=== PATIENT | male | born 1960 | race Caucasian/White ===

== ENCOUNTER 2022-08-01 10:15 | Outpatient (CLI) | payer BC, SELFPAY ==
--- NOTE | ~2022-08-01 | XR_ITS ---
XR abdomen/kub 1V 08/01/2022 10:31 Indication: Renal stone Procedure: KUB Comparison: No prior studies for comparison. Findings: Bowel gas pattern is nonobstructive. Moderate colonic fecal loading. No acute osseous abnor mality. There is osteoarthritis of the hips. Impression: 1: No acute abdominal abnormality. Reviewed, dictated and finalized at location B. LOPMENTAL SPECIALIST Impression: 1: No acute abdominal abnormality.
[2022-08-01 18:49] LABS: Basophils Absolute Auto 0.1 K/mm3 (0.0-0.1); Eosinophils Absolute Auto 0.2 K/mm3 (0-0.3); Eosinophils Percent Auto 3.4 % (0-4.4); Hematocrit 49.3 % (42.0-52.0); Hemoglobin 15.7 g/dL (14.0-18.0); Immature Granulocyte Absolute 0.01 K/mm3 (0.00-0.031); Immature Granulocyte Percent A 0.2 % (0-0.5); Lymphocytes Absolute Auto 1.83 K/mm3 (0.9-3.2); Lymphocytes Percent Auto 29.6 % (18.3-44.2); Mean Corpuscular HGB Conc 31.8 g/dl (32-36); Mean Corpuscular Volume 94.3 fl (80-100); Mean Platelet Volume 11.2 fl (7.4-10.4); Monocytes Absolute Auto 0.5 K/mm3 (0.1-0.6); Monocytes Percent Auto 8.1 % (2.6-8.5); Neutrophils Absolute Auto 3.6 K/mm3 (1.3-6.7); Neutrophils Percent Auto 57.7 % (45.5-73.1); Platelet Count Result 277 k/mm3 (150-375); Red Blood Count 5.23 M/mm3 (4.6-6.20); Red Cell Distribution Width 12.9 % (11.5-14.5); White Blood Count 6.2 K/mm3 (4.5-10.0)
[2022-08-01 18:54] LABS: Alanine Aminotransferase 88 U/L (6-50); Albumin Level 4.8 g/dL (3.5-5.1); Alkaline Phosphatase 84 U/L (38-126); Anion Gap 11 mmol/L (8-16); Aspartate Amino Transferase 77 U/L (17-59); Bilirubin,Total 0.7 mg/dL (0.2-1.3); Blood Urea Nitrogen 21 mg/dL (9-20); Carbon Dioxide 25 mmol/L (22-30); Chloride 103 mmol/L (98-107); Cholesterol 210 mg/dL (0-200); Estimated Glomerular Filt Rate > 60; Glucose 75 mg/dL (65-110); HDL Direct 41 mg/dL; Potassium 4.2 mmol/L (3.4-5.0); Sodium 139 mmol/L (137-145); Triglycerides 77 mg/dL (<150)
[2022-08-01 19:05] LABS: LDL Cholesterol Direct 132 mg/dL
[2022-08-01 19:26] LABS: Prostate Specific Antigen 1.1 ng/mL (< OR = 4.0)
== END 2022-08-01 10:16 | disposition home or self-care (01) ==
LOC: ANHBWCLAB 10:16
PROVIDERS: PCP Family Medicine; Visit Provider Family Medicine
DX: Z00.00 Encounter for general adult medical examination without abnormal findings (principal); N20.0 Calculus of kidney
CPT/HCPCS: 36415; 74018; 80053; 80061; 84153; 85025; G0103

== ENCOUNTER 2022-08-24 08:03 | Outpatient (CLI) | payer BC, SELFPAY ==
--- NOTE | ~2022-08-24 | CT_ITS ---
Non-contrast CT scan of the Abdomen and Pelvis Clinical indication: Nephrolithiasis Technique: 5 mm axial scans were obtained through the abdomen and pelvis without intravenous or oral contrast. Dose reduction technique was used on this scan by utilizing automated exposure control and iterative reconstruction technique. The dose-length product (DLP) was 222.80 mGy-cm. Findings: Images through the lung bases reveal calcified left basilar granulomas. Small bilateral nonobstructing renal stones are present, with largest stone measuring 3 mm in diamete r. No ureteral stone or hydronephrosis on either side. The liver, spleen, pancreas, gallbladder, and adrenals appear normal. There is no aortic aneurysm. There is no evidence of bowel obstruction. Normal appendix. Images through the pelvis were performed. There is no evidence of ascites or lymphadenopathy. Urinary bladder unremarkable. No pelvic mass seen. Impression: Small bilateral nonobstructing renal stones, as detailed above. Reviewed, dictated and finalized at location [] SLATIVE AIDE Impression: Small bilateral nonobstructing renal stones, as detailed above.
== END 2022-08-24 08:04 | disposition home or self-care (01) ==
LOC: ANHIMG 08:06
PROVIDERS: PCP Family Medicine; Visit Provider Nurse Practitioner
DX: N20.0 Calculus of kidney (principal)
CPT/HCPCS: 74176

== ENCOUNTER 2022-08-31 01:23 | Day surgery (SDC) | payer BC, SELFPAY ==
[2022-08-22 13:34] VITALS: BMI 24.7
[2022-08-31 11:32] VITALS: BP 113/73; PULSE 65; RESP 18; TEMP 35.9; O2SAT 99
[2022-08-31] MEDS: LACTATED RINGERS 1,000 ML 150 ML IV CONT (11:35)
--- NOTE | 2022-08-31 12:00 | WPDANESEPPF ---
Anes - Initial Pre Proc Eval Procedure: Operation Date: 08/31/22 13:00 Proposed Procedures p Screening Colonoscopy - Odin Moore MD Date/Time: 08/31/22 12:00 Surgeon: Odin Moore MD Pre Op Diagnosis: neoplasm screening Patient Data Age: 62 Gender: M Height: 1.85 m Weight: 85 kg Last Vital Signs Temp 35.9 C L 08/31/22 11:32 Pulse 65 08/31/22 11:32 Resp 18 08/31/22 11:32 BP 113/73 08/31/22 11:32 Pulse Ox 99 08/31/22 11:32 O2 Del Method Room Air 08/31/22 11:32 Allergies Allergy/AdvReac Type Severity Reaction Status Date / Time No Known Allergies Allergy Verified 08/31/22 11:31 Home Medications Medication Instructions Recorded Confirmed Type tamsulosin 0.4 mg capsule 0.4 mg PO DAILY PRN Kidney Stones 08/22/22 08/31/22 History Patient hx anesthesia problems: none Family hx anesthesia problems: none Results Review: All pre-operative results and documents have been reviewed as part of the pre-operative evaluation. [facility] Past Medical History Medical History GANESH (obstructive sleep apnea) Family History Family History Father History of ETOH abuse Hypertension Depression COPD (chronic obstructive pulmonary disease) Mother Hypertension Heart disease Sibling Depression Social History Social History Smoking status: Never smoker Smokeless tobacco user: chewing tobacco Alcohol intake: never Substance use: never Substance use type: does not use Lack of Transportation: No Lack of Food: Never True Current Housing: I Have Housing Concerned About Future Housing: No Difficulty Paying Gas/Electric Bills: No Difficulty Paying for Meds: No Currently Unemployed: No Education: High School Diploma/GED Difficulty w/ Childcare or Family Care: No Living arrangements: with family 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[employer] Gender identity (if verbalized by the patient): Male Spiritual care concerns: No Agree to blood products: Yes Anes - Eval Final PreProcedure Day of Procedure 08/31/22 12:00 Patient weight: normal Heart: regular rate and rhythm Lungs: clear to auscultation Airway: Mallampati scale class II Neurological: alert and oriented Last oral intake: >/= 8 hours ASA classification: II Emergent: no Anesthetic plan: proceed Anesthesia type and monitoring: general GIVS and standard monitoring Results Review: All pre-operative results and documents have been reviewed as part of the pre-operative evaluation. Informed Consent: The patient's anesthetic plan and its attendant risks and benefits were discussed with the patient/family/POA. Questions were solicited and answers provided to the satisfaction of the patient/family/POA.
--- NOTE | 2022-08-31 12:27 | PM.HPGS ---
History of Present Illness History of Present Illness Consent: Risks, benefits, and alternatives have been discussed and questions answered. Patient agrees to proceed with procedure. Chief complaint: neoplasm screening Narrative: Kenan Magana is a 62 year old male here for first screening colonoscopy Review of Systems Constitutional: Constitutional: Denies headache(s) and Denies weakness Eyes: Eyes: Denies blurry vision ENT: Reports Normal hearing present, Denies headache(s) and Denies neck pain Cardiovascular: Cardiovascular: Denies chest pain and Denies dyspnea Respiratory: Respiratory: Denies dyspnea Gastrointestinal: Gastrointestinal: Reports no additional gastrointestinal complaints Genitourinary: Genitourinary: Denies dysuria Musculoskeletal: Musculoskeletal: Denies neck pain Integumentary/Breasts: Skin/Breast: Denies dry skin Neurologic: Reports Normal hearing present, Denies headache(s) and Denies weakness Psychiatric: Psychiatric: Denies anxiety Endocrine: Endocrine: Denies change in body appearance Hematologic/Lymphatic: Hematologic/Lymphatic: Denies easy bleeding Allergic/Immunologic: Allergic/Immunologic: Denies urticaria PMFSH Past Medical History Medical History GANESH (obstructive sleep apnea) Family History Family History Father History of ETOH abuse Hypertension Depression COPD (chronic obstructive pulmonary disease) Mother Hypertension Heart disease Sibling Depression Social History Social History Smoking status: Never smoker Smokeless tobacco user: chewing tobacco Alcohol intake: never Substance use: never Substance use type: does not use Lack of Transportation: No Lack of Food: Never True Current Housing: I Have Housing Concerned About Future Housing: No Difficulty Paying Gas/Electric Bills: No Difficulty Paying for Meds: No Currently Unemployed: No Education: High School Diploma/GED Difficulty w/ Childcare or Family Care: No Living arrangements: with family 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 Gender identity (if verbalized by the patient): Male Spiritual care concerns: No Agree to blood products: Yes Meds Home Medications and Allergies Home Medications Medication Instructions Recorded Confirmed Type tamsulosin 0.4 mg capsule 0.4 mg PO DAILY PRN Kidney Stones 08/22/22 08/31/22 History Allergies Allergy/AdvReac Type Severity Reaction Status Date / Time No Known Allergies Allergy Verified 08/31/22 11:31 Vital Signs Vital Signs - 24 hr 08/31/22 11:32 Temperature 96.7 F L Pulse Rate 65 Respiratory Rate 18 Blood Pressure 113/73 Pulse Oximetry 99 Oxygen Delivery Room Air Exam Const: General: comfortable and no acute distress HENMT: Face/Nose/Sinus: Normal nares present Eyes: General: appearance normal, both eyes and all related structures Neck: Neck: no JVD Resp: Auscultation: clear to auscultation bilaterally Cardio: Rate: regular rate Rhythm: regular rhythm GI: Inspection: non-distended GI Palp: Yes Soft to palpation Skin: General skin exam: normal color Neuro: General: gait normal Speech: normal speech Extrem: General: normal to inspection Psych: Mental Status: mental status grossly normal Assessment and Plan Assessment and plan (1) Colon cancer screening: Code(s): Z12.11 - Encounter for screening for malignant neoplasm of colon Status: Acute Assessment and Plan: colonoscopy
[2022-08-31 12:48] VITALS: BP 89/56; PULSE 64; RESP 22; O2SAT 99
[2022-08-31 12:58] VITALS: BP 115/79; PULSE 68; RESP 20; O2SAT 97
[2022-08-31 13:08] VITALS: BP 112/75; PULSE 58; RESP 19; O2SAT 98
== END 2022-08-31 13:16 | disposition home or self-care (01) ==
PROVIDERS: PCP Family Medicine; Visit Provider Internal Medicine Gastroenterology
PROC: 0DJD8ZZ Inspection of Lower Intestinal Tract, Via Natural or Artificial Opening Endoscopic (ICD-10-PCS; CPT 45378; principal; 2022-08-31 13:00)
DX: Z12.11 Encounter for screening for malignant neoplasm of colon (principal); D12.0 Benign neoplasm of cecum; D12.5 Benign neoplasm of sigmoid colon; K64.8 Other hemorrhoids; G47.33 Obstructive sleep apnea (adult) (pediatric)
CPT/HCPCS: 45385; 88305; J2704; J7120

== ENCOUNTER 2022-09-23 10:52 | Outpatient (CLI) | payer BC, SELFPAY ==
[2022-09-23 17:38] LABS: Alanine Aminotransferase 72 U/L (6-50); Albumin Level 4.5 g/dL (3.5-5.1); Alkaline Phosphatase 83 U/L (38-126); Aspartate Amino Transferase 55 U/L (17-59); Bilirubin,Total 0.8 mg/dL (0.2-1.3)
[2022-09-23 18:17] LABS: Hepatitis B Surface Antigen Negative (Negative)
[2022-09-23 18:23] LABS: HAV RESULT Negative (Negative); Hepatitis B Core IgM Result Negative (Negative)
[2022-09-23 18:35] LABS: Hepatitis C Virus Antibody Negative (Negative)
== END 2022-09-23 10:53 | disposition home or self-care (01) ==
PROVIDERS: PCP Family Medicine; Visit Provider Family Medicine
DX: R74.8 Abnormal levels of other serum enzymes (principal)
CPT/HCPCS: 36415; 80074; 80076

== ENCOUNTER 2022-11-08 14:45 | Outpatient (CLI) | payer BC, SELFPAY ==
[2022-11-08 19:01] LABS: Anion Gap 8 mmol/L (8-16); Blood Urea Nitrogen 20 mg/dL (9-20); Calcium 9.9 mg/dL (8.4-10.2); Carbon Dioxide 27 mmol/L (22-30); Chloride 99 mmol/L (98-107); Estimated Glomerular Filt Rate > 60; Glucose 97 mg/dL (65-110); Potassium 4.2 mmol/L (3.4-5.0); Sodium 134 mmol/L (137-145)
== END 2022-11-08 14:46 | disposition home or self-care (01) ==
PROVIDERS: PCP Family Medicine; Visit Provider Nurse Practitioner
DX: Z87.442 Personal history of urinary calculi (principal)
CPT/HCPCS: 36415; 80048

== ENCOUNTER 2023-08-02 08:57 | Outpatient (CLI) | payer BC, SELFPAY ==
[2023-08-02 19:21] LABS: Alanine Aminotransferase 38 U/L (6-50); Albumin Level 4.4 g/dL (3.5-5.1); Alkaline Phosphatase 68 U/L (38-126); Anion Gap 11 mmol/L (8-16); Aspartate Amino Transferase 56 U/L (17-59); Bilirubin,Total 0.8 mg/dL (0.2-1.3); Blood Urea Nitrogen 14 mg/dL (9-20); Calcium 9.9 mg/dL (8.4-10.2); Carbon Dioxide 25 mmol/L (22-30); Chloride 104 mmol/L (98-107); Cholesterol 177 mg/dL (0-200); Estimated Glomerular Filt Rate 56; Glucose 93 mg/dL (65-110); HDL Direct 38 mg/dL; Potassium 4.2 mmol/L (3.4-5.0); Sodium 140 mmol/L (137-145); Triglycerides 156 mg/dL (<150)
[2023-08-02 19:33] LABS: Hematocrit 46.1 % (42.0-52.0); Hemoglobin 14.5 g/dL (14.0-18.0); Mean Corpuscular HGB Conc 31.5 g/dl (32-36); Mean Corpuscular Hemoglobin 29.5 pg (26-34); Mean Corpuscular Volume 93.9 fl (80-100); Mean Platelet Volume 11.3 fl (7.4-10.4); Platelet Count Result 250 k/mm3 (150-375); Red Blood Count 4.91 M/mm3 (4.6-6.20); Red Cell Distribution Width 13.4 % (11.5-14.5); White Blood Count 5.2 K/mm3 (4.5-10.0)
[2023-08-02 19:36] LABS: LDL Cholesterol Direct 104 mg/dL
[2023-08-02 19:52] LABS: Prostate Specific Antigen 1.2 ng/mL (< OR = 4.0)
== END 2023-08-02 08:58 | disposition home or self-care (01) ==
PROVIDERS: PCP Family Medicine; Visit Provider Nurse Practitioner Adult Health
DX: Z13.9 Encounter for screening, unspecified (principal); Z12.5 Encounter for screening for malignant neoplasm of prostate
CPT/HCPCS: 36415; 80053; 80061; 84153; 85027; G0103

== ENCOUNTER 2023-10-25 14:06 | Emergency (ER) | payer BC, SELFPAY ==
--- NOTE | ~2023-10-25 | XR_ITS ---
EXAMINATION: XR chest 1V portable DATE: 10/25/2023 18:28 INDICATION: Palpitations TECHNIQUE: frontal view of the chest was obtained. COMPARISON: None FINDINGS: There are couple small calcified pulmonary nodules in the left lower lung along with calcified left h ilar lymph nodes consistent with old granulomatous disease. There is a small more dense opacity which appears subpleural at the left apex, unclear whether calcified or potentially a metallic foreign bod y. No other airspace opacities, pulmonary edema, pleural effusion or pneumothorax. The cardiomediasti nal silhouette is normal. IMPRESSION: 1. No acute cardiopulmonary disease. Reviewed, dictated and finalized at location A. ETER
--- NOTE | 2023-10-25 14:13 | ECG_ITS ---
Measurements Intervals [employer] Rate: 82 P: 42 ID: 187 QRS: -19 QRSD: 86 T: 60 QT: 379 QTc: 443 Interpretive Statements SINUS RHYTHM POSSIBLE RIGHT VENTRICULAR CONDUCTION DELAY [RSR (QR) IN V1/V2] NO PREVIOUS ECG AVAILABLE FOR COMPARISON Electronically Signed On 10-25-2023 14:41:42 GREASE REFINING SUPERVISOR by eBrto Rivas M.D.
[2023-10-25 14:35] VITALS: BP 126/80; PULSE 81; RESP 14; TEMP 36.6; O2SAT 100
[2023-10-25 17:30] VITALS: BP 136/92; PULSE 69; RESP 16; TEMP 36.3; O2SAT 99
--- NOTE | 2023-10-25 17:48 | ED.ARRPALP ---
HPI - Arrhythmia/Palpitations General Chief Complaint: Arrhythmia/Palpitations Stated Complaint: palpatations Time Seen by Provider: 10/25/23 17:33 History of Present Illness HPI narrative: Patient is a 9-year-old male who presents emergency department this afternoon complaining of palpitations for the past 3 weeks. Patient admits that these palpitations have been happening multiple times a day. This prompted the patient to decrease his caffeine intake as he thought it could be contributing to his. Despite lack of caffeine, patient still has these palpitations. Patient finally decided to come to the emergency department for further evaluation. He drinks 1 cup of coffee a day, denies any tobacco use or alcohol abuse or illicit drug use. He is currently denying any chest pain at this time. Patient denies any significant past medical history and states that he is not currently taking any medications. The remainder the history of present illness and review of systems negative unless stated otherwise in the HPI. Related Data Allergies Allergy/AdvReac Type Severity Reaction Status Date / Time No Known Allergies Allergy Verified 08/02/23 08:31 Review of Systems Review of Systems: All systems are reviewed and are negative unless stated otherwise in the HPI. [facility] Past Medical History Medical History GANESH (obstructive sleep apnea) Family History Family History Father History of ETOH abuse Hypertension Depression COPD (chronic obstructive pulmonary disease) Mother Hypertension Heart disease Sibling Depression Social History Social History Smoking status: Never smoker Smokeless tobacco user: chewing tobacco Alcohol intake: never Substance use: never Substance use type: does not use Lack of Transportation: No Lack of Food: Never True Current Housing: I Have Housing Concerned About Future Housing: No Difficulty Paying Gas/Electric Bills: No Difficulty Paying for Meds: No Currently Unemployed: No Education: High School Diploma/GED Difficulty w/ Childcare or Family Care: No Living arrangements: with family Occupation/Education: occupation 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 HEENT: PERRL, no rhinorrhea, no post nasal drip, oropharynx clear. Neck: Trachea midline, no JVD, no lymphadenopathy. Cardiovascular: Regular rate and rhythm, no murmurs, rubs or gallops, no peripheral edema. Respiratory: Clear to auscultation bilaterally, no tachypnea, no wheezing, no rhonchi, no rubs, no respiratory distress. Abdomen: Soft, nontender, nondistended, no rebound, no guarding, no peritoneal signs. Musculoskeletal: No joint swelling or deformity, normal muscle tone. Skin: No rashes or petechia, no signs of infection. Psychiatric: Alert and oriented, normal behavior and judgment for situation. Neurological: Alert and oriented to person, place, and time. Follows all commands. No focal deficits, speech is clear and fluent. Course Vital Signs Vital signs: Vital Signs Temperature 98 F 10/25/23 14:35 Pulse Rate 81 10/25/23 14:35 Respiratory Rate 14 10/25/23 14:35 Blood Pressure 126/80 10/25/23 14:35 Pulse Oximetry 100 10/25/23 14:35 Temperature 98 F 10/25/23 14:35 Pulse Rate 81 10/25/23 14:35 Respiratory Rate 14 10/25/23 14:35 Blood Pressure 126/80 10/25/23 14:35 Pulse Oximetry 100 10/25/23 14:35 MDM - Arrhythmia/Palpitations MDM Narrative Medical decision making narrative: The patient was evaluated by myself in the emergency department. History is obtained from
[2023-10-25 18:16] LABS: Basophils Absolute Auto 0.1 K/mm3 (0.0-0.1); Basophils Percent Auto 0.8 % (0.2-1.2); Eosinophils Absolute Auto 0.1 K/mm3 (0-0.3); Eosinophils Percent Auto 1.8 % (0-4.4); Hematocrit 47.1 % (42.0-52.0); Hemoglobin 15.8 g/dL (14.0-18.0); Immature Granulocyte Absolute 0.03 K/mm3 (0.00-0.031); Immature Granulocyte Percent A 0.5 % (0-0.5); Lymphocytes Absolute Auto 1.62 K/mm3 (0.9-3.2); Lymphocytes Percent Auto 24.4 % (18.3-44.2); Mean Corpuscular HGB Conc 33.5 g/dl (32-36); Mean Corpuscular Hemoglobin 29.5 pg (26-34); Mean Platelet Volume 10.1 fl (7.4-10.4); Monocytes Absolute Auto 0.5 K/mm3 (0.1-0.6); Monocytes Percent Auto 7.8 % (2.6-8.5); Neutrophils Absolute Auto 4.3 K/mm3 (1.3-6.7); Neutrophils Percent Auto 64.7 % (45.5-73.1); Platelet Count Result 260 k/mm3 (150-375); Red Blood Count 5.35 M/mm3 (4.6-6.20); Red Cell Distribution Width 13.1 % (11.5-14.5); White Blood Count 6.6 K/mm3 (4.5-10.0)
[2023-10-25 18:27] LABS: Alanine Aminotransferase 49 U/L (6-50); Albumin Level 4.4 g/dL (3.5-5.1); Alkaline Phosphatase 81 U/L (38-126); Anion Gap 7 mmol/L (8-16); Aspartate Amino Transferase 37 U/L (17-59); Bilirubin,Total 0.8 mg/dL (0.2-1.3); Blood Urea Nitrogen 14 mg/dL (9-20); Carbon Dioxide 26 mmol/L (22-30); Chloride 103 mmol/L (98-107); Estimated CRCL calculation 95 ml/min; Estimated Glomerular Filt Rate > 60; Glucose 96 mg/dL (65-110); Magnesium 2.3 mg/dL (1.6-2.3); Sodium 136 mmol/L (137-145)
[2023-10-25 18:45] LABS: Troponin I < 0.012 ng/mL (0.000-0.034)
[2023-10-25 19:47] VITALS: BP 127/86; PULSE 72; RESP 16; TEMP 36.7; O2SAT 96
== END 2023-10-25 19:49 | disposition home or self-care (01) ==
PROVIDERS: Emergency Provider Emergency Medicine; PCP Family Medicine
DX: R00.2 Palpitations (principal); G47.33 Obstructive sleep apnea (adult) (pediatric); F17.220 Nicotine dependence, chewing tobacco, uncomplicated; R94.31 Abnormal electrocardiogram [ECG] [EKG]
CPT/HCPCS: 36415; 71045; 80053; 83735; 84484; 85025; 93005; 99284

== ENCOUNTER 2023-10-28 00:50 | Emergency (ER) | payer BC, SELFPAY ==
[2023-10-28] VITALS (12 sets, daily range): BP systolic 104–126; BP diastolic 69–87; PULSE 53–77; RESP 11–29; TEMP 36.6; O2SAT 95–99
--- NOTE | ~2023-10-28 | XR_ITS ---
EXAMINATION: XR chest 2V DATE: 10/28/2023 01:14 INDICATION: Mid to left-sided chest pain TECHNIQUE: PA and lateral views of the chest were obtained. COMPARISON: Chest radiograph dated 10/25/23 FINDINGS: Small calcified nodules at the left lower lung zone and calcified left hilar lymph nodes consistent w ith old granulomatous disease. No other airspace opacities, pulmonary edema, pleural effusion or pneu mothorax. Unchanged small radiopaque foreign body in the soft tissues at the base of the left neck. T he cardiomediastinal silhouette is normal. Mild thoracic spondylosis. IMPRESSION: 1. No acute cardiopulmonary disease. Reviewed, dictated and finalized at location A. CONSULTANT
--- NOTE | 2023-10-28 00:51 | ECG_ITS ---
Measurements Intervals [employer] Rate: 61 P: 10 IL: 181 QRS: 14 QRSD: 86 T: 46 QT: 420 QTc: 426 Interpretive Statements SINUS RHYTHM NORMAL ELECTROCARDIOGRAM COMPARED TO ECG 10/25/2023 14:19:06 NO SIGNIFICANT CHANGES Electronically Signed On 10-28-2023 8:31:22 MESH CUTTER by Kenan Vasquez M.D.
[2023-10-28 01:13] LABS: Basophils Absolute Auto 0.1 K/mm3 (0.0-0.1); Basophils Percent Auto 0.8 % (0.2-1.2); Eosinophils Absolute Auto 0.2 K/mm3 (0-0.3); Eosinophils Percent Auto 2.6 % (0-4.4); Hematocrit 47.8 % (42.0-52.0); Hemoglobin 15.4 g/dL (14.0-18.0); Immature Granulocyte Absolute 0.03 K/mm3 (0.00-0.031); Immature Granulocyte Percent A 0.5 % (0-0.5); Lymphocytes Absolute Auto 2.07 K/mm3 (0.9-3.2); Lymphocytes Percent Auto 31.9 % (18.3-44.2); Mean Corpuscular HGB Conc 32.2 g/dl (32-36); Mean Corpuscular Hemoglobin 29.2 pg (26-34); Mean Corpuscular Volume 90.5 fl (80-100); Mean Platelet Volume 10.4 fl (7.4-10.4); Monocytes Absolute Auto 0.5 K/mm3 (0.1-0.6); Monocytes Percent Auto 7.7 % (2.6-8.5); Neutrophils Absolute Auto 3.7 K/mm3 (1.3-6.7); Neutrophils Percent Auto 56.5 % (45.5-73.1); Platelet Count Result 255 k/mm3 (150-375); Red Blood Count 5.28 M/mm3 (4.6-6.20); White Blood Count 6.5 K/mm3 (4.5-10.0)
[2023-10-28 01:23] LABS: Alanine Aminotransferase 45 U/L (6-50); Albumin Level 4.3 g/dL (3.5-5.1); Alkaline Phosphatase 78 U/L (38-126); Anion Gap 8 mmol/L (8-16); Aspartate Amino Transferase 28 U/L (17-59); Bilirubin,Total 0.6 mg/dL (0.2-1.3); Blood Urea Nitrogen 16 mg/dL (9-20); Calcium 9.7 mg/dL (8.4-10.2); Carbon Dioxide 23 mmol/L (22-30); Chloride 108 mmol/L (98-107); Estimated CRCL calculation 85 ml/min; Estimated Glomerular Filt Rate > 60; Glucose 103 mg/dL (65-110); Lipase 115 U/L (23-300); Potassium 4.2 mmol/L (3.4-5.0); Prothrombin Time 13.6 Seconds (11.1-14.7); Sodium 139 mmol/L (137-145)
[2023-10-28 01:35] LABS: Troponin I < 0.012 ng/mL (0.000-0.034)
[2023-10-28] MEDS: ASPIRIN 81 MG CHEWABLE TABLET 324 MG PO (03:40)
--- NOTE | 2023-10-28 04:00 | ECG_ITS ---
Measurements Intervals [place] Rate: 73 P: 44 IA: 187 QRS: 16 QRSD: 94 T: 65 QT: 395 QTc: 436 Interpretive Statements SINUS RHYTHM INDETERMINATE AXIS MINOR RV CONDUCTION ABNORMALITY OTHERWISE UNREMARKABLE ECG COMPARED TO ECG 10/25/2023 14:19:06 NO DIFFERENCE Electronically Signed On 10-28-2023 19:10:11 PRODUCT DEVELOPMENT MANAGER by Kenan Vasquez M.D.
[2023-10-28 04:52] LABS: Troponin I < 0.012 ng/mL (0.000-0.034)
--- NOTE | 2023-10-28 05:55 | ED.GENADULT ---
HPI - General Adult General Chief complaint: Chest Pain Stated complaint: Chest pain Time Seen by Provider: 10/28/23 03:41 History of Present Illness HPI narrative: This is a 63-year-old male presenting ED with chief complaint of chest pain. Patient states he was sleeping when he was woken with a sharp pain in the center of his chest that then became a pressure. It is nonradiating 6 out 10 intensity and lasted 30 seconds to 1 minute at a time. It happened 10-20 times in a row. Never had this happen before. Improved with lying down. No exacerbating factors. Was so CO2 episodes of nausea vomiting. No fever chills diaphoresis shortness of breath or exertional component. Patient has had palpitations recently and was seen early early this week and emergency department. Related Data Allergies Allergy/AdvReac Type Severity Reaction Status Date / Time No Known Allergies Allergy Verified 08/02/23 08:31 [facility] Past Medical History Medical History GANESH (obstructive sleep apnea) Family History Family History Father History of ETOH abuse Hypertension Depression COPD (chronic obstructive pulmonary disease) Mother Hypertension Heart disease Sibling Depression Social History Social History Smoking status: Never smoker Smokeless tobacco user: chewing tobacco Alcohol intake: never Substance use: never Substance use type: does not use Lack of Transportation: No Lack of Food: Never True Current Housing: I Have Housing Concerned About Future Housing: No Difficulty Paying Gas/Electric Bills: No Difficulty Paying for Meds: No Currently Unemployed: No Education: High School Diploma/GED Difficulty w/ Childcare or Family Care: No Living arrangements: with family Occupation/Education: occupation 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 Head: atraumatic. EYES: EOMI, NOSE: Atraumatic NECK: Trachea midline RESPIRATORY: No increased rate of breathing , clear to auscultation CARDIOVASCULAR: RRR, no peripheral edema ABDOMINAL: Non-distended soft nontender no guarding rebound MUSCULOSKELETAl: No obvious deformities NEURO: Alert. Moving 4/4 extremities SKIN:: Warm, dry. Normal color PSYCHIATRIC: Normal affect Course Vital Signs Vital signs: Vital Signs Temperature 97.8 F 10/28/23 01:07 Pulse Rate 77 10/28/23 01:07 Respiratory Rate 16 10/28/23 01:07 Blood Pressure 118/70 10/28/23 01:07 Pulse Oximetry 98 10/28/23 01:07 Oxygen Delivery Room Air 10/28/23 01:07 Temperature 97.8 F 10/28/23 01:07 Pulse Rate 56 L 10/28/23 04:32 Respiratory Rate 19 10/28/23 04:32 Blood Pressure 111/76 10/28/23 04:32 Pulse Oximetry 96 10/28/23 04:32 Oxygen Delivery Room Air 10/28/23 03:38 Medical Decision Making MDM Narrative Medical decision making narrative: -Course: 63-year-old male presenting with an episode of chest pain with nausea and vomiting. laboratory studies, EKG chest x-ray and troponins all negative. Patient asymptomatic the entire length of his ED stay. Pain is likely due to his vomiting as opposed to cardiac reasons. Patient be discharged follow-up with primary care physician. 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
== END 2023-10-28 06:14 | disposition home or self-care (01) ==
PROVIDERS: Emergency Provider Emergency Medicine; PCP Family Medicine
DX: R07.89 Other chest pain (principal); G47.33 Obstructive sleep apnea (adult) (pediatric); F17.220 Nicotine dependence, chewing tobacco, uncomplicated; R94.31 Abnormal electrocardiogram [ECG] [EKG]
CPT/HCPCS: 36415; 71046; 80053; 83690; 84484; 85025; 85610; 85730; 93005; 99284; A9270

== ENCOUNTER 2024-01-23 08:56 | Outpatient (CLI) | payer BC, SELFPAY ==
[2024-01-23 21:06] LABS: Cholesterol 194 mg/dL (0-200); HDL Direct 45 mg/dL; Triglycerides 102 mg/dL (<150)
[2024-01-23 21:16] LABS: LDL Cholesterol Direct 127 mg/dL
== END 2024-01-23 08:57 | disposition home or self-care (01) ==
PROVIDERS: PCP Family Medicine; Visit Provider Internal Medicine Cardiovascular Disease
DX: R53.83 Other fatigue (principal); R07.89 Other chest pain; G47.33 Obstructive sleep apnea (adult) (pediatric)
CPT/HCPCS: 36415; 80061

== ENCOUNTER 2024-08-05 07:45 | Outpatient (CLI) | payer BC, SELFPAY ==
--- NOTE | ~2024-08-05 | XR_ITS ---
EXAMINATION: XR_CERV2-3V_CR DATE: 08/05/2024 08:08 INDICATION: Neck pain. TECHNIQUE: 3 views of cervical spine were obtained. COMPARISON: None. FINDINGS: There is 5 degrees levocurvature of cervical spine. Vertebral body heights and intervertebr al disc heights are normal. There is multilevel mild uncovertebral joint osteoarthritis. There is mul tilevel severe facet joint osteoarthritis. No central canal stenosis or prevertebral soft tissue swel ling. IMPRESSION: 1. Mild cervical spondylosis. Reviewed, dictated and finalized at location A. SECRETARY
[2024-08-05 18:56] LABS: Hematocrit 47.7 % (42.0-52.0); Hemoglobin 15.2 g/dL (14.0-18.0); Mean Corpuscular HGB Conc 31.9 g/dl (32-36); Mean Corpuscular Hemoglobin 29.5 pg (26-34); Mean Corpuscular Volume 92.4 fl (80-100); Mean Platelet Volume 10.7 fl (7.4-10.4); Platelet Count Result 245 k/mm3 (150-375); Red Blood Count 5.16 M/mm3 (4.6-6.20); Red Cell Distribution Width 13.2 % (11.5-14.5); White Blood Count 6.5 K/mm3 (4.5-10.0)
[2024-08-05 18:59] LABS: Alanine Aminotransferase 40 U/L (6-50); Albumin Level 4.3 g/dL (3.5-5.1); Alkaline Phosphatase 71 U/L (38-126); Anion Gap 7 mmol/L (4-12); Aspartate Amino Transferase 60 U/L (17-59); Bilirubin,Total 0.7 mg/dL (0.2-1.3); Blood Urea Nitrogen 14 mg/dL (9-20); Calcium 9.9 mg/dL (8.4-10.2); Carbon Dioxide 24 mmol/L (22-30); Chloride 107 mmol/L (98-107); Cholesterol 135 mg/dL (0-200); Estimated Glomerular Filt Rate > 60; Glucose 84 mg/dL (65-110); HDL Direct 46 mg/dL; Potassium 4.6 mmol/L (3.4-5.0); Sodium 138 mmol/L (137-145); Triglycerides 128 mg/dL (<150)
[2024-08-05 19:11] LABS: LDL Cholesterol Direct 57 mg/dL
== END 2024-08-05 07:46 | disposition home or self-care (01) ==
LOC: ANHBWCLAB 07:46
PROVIDERS: PCP Nurse Practitioner Adult Health; Visit Provider Nurse Practitioner Adult Health
DX: M43.02 Spondylolysis, cervical region (principal); Z13.9 Encounter for screening, unspecified; Z12.5 Encounter for screening for malignant neoplasm of prostate
CPT/HCPCS: 36415; 72040; 80053; 80061; 84153; 85027; G0103

== ENCOUNTER 2025-07-07 12:29 | Emergency (ER) | payer OTHER, SELFPAY ==
--- NOTE | ~2025-07-07 | CT_ITS ---
CT HEAD NON-CONTRAST Clinical History: Trauma Comparison: None Technique: Unenhanced axial images skull base to vertex Coronal, sagittal reformats CT images acquired with automatic exposure control for dose reduction DLP: 681 mGy-cm Findings: Sulci, ventricles: Unremarkable. No intracerebral hemorrhage. No evidence acute territorial infarct. No mass effect, midline shift. Bony calvarium intact. Visualized paranasal sinuses: Clear. Mastoid air cells: Clear. IMPRESSION: 1. No acute intracranial findings. Reviewed, dictated and finalized at location R.
--- NOTE | ~2025-07-07 | XR_ITS ---
EXAMINATION: XR ribs RT 2V w CXR 2V, 07/07/2025 13:50 CDT HISTORY: trauma, FELL, PAIN POST/LAT, BRUISING COMPARISON: No comparisons available. Findings: No acute fracture or malalignment. No significant degenerative changes. Soft tissues unremarkable. Impression: No acute fracture or malalignment. Reviewed, dictated and finalized at location P. Impression: No acute fracture or malalignment.
[2025-07-07 12:46] VITALS: BP 137/77; PULSE 60; RESP 16; TEMP 36.3; O2SAT 99
--- NOTE | 2025-07-07 13:43 | ED.GENADULT ---
HPI - General Adult General Chief complaint: Back Pain/Injury Stated complaint: fell yesterday. R sided back pain. Nausea today. Time Seen by Provider: 07/07/25 12:57 History of Present Illness HPI narrative: Patient is a 65-year-old male who presents ER after having a fall yesterday. She was in his camper when he fell down the stairs landing on his right side low back. He had sudden onset pain in the area. It took him a little bit to get back up. He is unsure if he hit his head. Today while driving he became foggy and lightheaded and has been persistent. It is coupled with some mild nausea. This is not related to waves of pain in his back. He has no lower extremity numbness or tingling. He is not on any blood thinning medications. He does have history kidney stones but he has no urinary frequency or urgency. Related Data Home Medications ?Medication ?Instructions ?Recorded ?Confirmed ?Last Taken ?Type metoprolol succinate 25 mg 25 mg PO DAILY 08/06/24 05/27/25 Unknown History tablet,extended release 24 hr rosuvastatin 10 mg tablet 10 mg PO DAILY 08/06/24 05/27/25 Unknown History Allergies Allergy/AdvReac Type Severity Reaction Status Date / Time No Known Allergies Allergy Verified 07/07/25 12:31 Review of Systems Review of Systems: All systems reviewed & are unremarkable except as noted in HPI and below Constitutional: Constitutional: Reports no additional constitutional complaints ENT: Reports system reviewed and no additional complaints, except as documented Cardiovascular: Cardiovascular: Reports no additional cardiovascular complaints Respiratory: Respiratory: Reports no additional respiratory complaints Genitourinary: Genitourinary: Reports no additional male genitourinary complaints Musculoskeletal: Musculoskeletal: Reports no additional musculoskeletal complaints Neurologic: Reports system reviewed and no additional complaints, except as documented [facility] Past Medical History Medical History (Updated 07/07/25 @ 15:07 by Aftab Frye MD) Nephrolithiasis GANESH (obstructive sleep apnea) Surgical History Surgical History (Updated 07/07/25 @ 13:46 by Aftab Frye MD) No pertinent past surgical history Family History Family History Father History of ETOH abuse Hypertension Depression COPD (chronic obstructive pulmonary disease) Mother Hypertension Heart disease Sibling Depression Social History Social History Smoking status: Never smoker Smokeless tobacco user: chewing tobacco Alcohol intake: never Substance use: never Substance use type: does not use Lack of Transportation: No Lack of Food: Never True Current Housing: I Have Housing Concerned About Future Housing: No Difficulty Paying Gas/Electric Bills: No Difficulty Paying for Meds: No Currently Unemployed: No Education: High School Diploma/GED Difficulty w/ Childcare or Family Care: No Living arrangements: with family Occupation/Education: occupation 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 HEAD: Normocephalic, atraumatic. ENT: Mucous membranes moist. CHEST: Clear to auscultation. No respiratory distress. Tender palpation over the right posterior ribs laterally posterior to the midaxillary line HEART: Regular rate and rhythm. Normal peripheral pulses. ABDOMEN: Soft, nontender, nondistended. BACK: No midline tenderness or paraspinal tenderness of the T/L spine. Lateral tenderness on the right near the latisimus dorsi and external oblique. EXTREMITIES: Normal range of motion. No edema. SKIN: Warm, dry, no rash. NEURO: Alert and oriented x3. PSYCH: Normal mood and affect. Course Vital Signs Vital signs: Vital Signs Temperature 97.4 F L 07/07/25 12:46 Pulse Rate 60 07/07/25 12:46 Respiratory Rate 16 07/07/25 12:46 Blood Pressure 137/77 07/07/25 12:46 Pulse Oximetry 99 07/07/25 12:46 Oxygen Delivery Room Air 07/07/25 12:46 Temperature 97.4 F L 07/07/25 12:46 Pulse Rate 60 07/07/25 12:46 Respiratory Rate 16 07/07/25 12:46 Blood Pressure 137/77 07/07/25 12:46 Pulse Oximetry 99 07/07/25 12:46 Oxygen Delivery Room Air 07/07/25 12:46 Medical Decision Making Differential Diagnosis Differential Diagnosis: Vertebral fracture, muscle strain/contusion, closed head injury, intracerebral hemorrhage, kidney stone, rib fracture Vital Signs Vital Signs: Vital Signs Temperature 97.4 F L 07/07/25 12:46 Pulse Rate 60 07/07/25 12:46 Respiratory Rate 16 07/07/25 12:46 Blood Pressure 137/77 07/07/25 12:46 Pulse Oximetry 99 07/07/25 12:46 Oxygen Delivery Room Air 07/07/25 12:46 Temperature 97.4 F L 07/07/25 12:46 Pulse Rate 60 07/07/25 12:46 Respiratory Rate 16 07/07/25 12:46 Blood Pressure 137/77 07/07/25 12:46 Pulse Oximetry 99 07/07/25 12:46 Oxygen Delivery Room Air 07/07/25 12:46 Lab Data Lab results reviewed: Yes I reviewed the patient's lab results. Labs: Lab Results 07/07/25 Range/Units 14:00 Urine Color Yellow (Yellow) Urine Appearance Clear (Clear) Urine pH 5.5 (5.0-9.0) Ur Specific [place] 1.019 (1.001-1.035) Urine Protein Negative (Negative) mg/dL Urine Glucose (UA) Negative (Negative) mg/dL Urine Ketones Negative (Negative) mg/dL Ur Blood (Man) Negative (Negative) Urine Nitrate Negative (Negative) Urine Bilirubin Negative (Negative) Urine Urobilinogen 1.0 (<2.0) mg/dL Leukocyte Esterase Rfl Negative (Negative) YADI/UL Imaging Data Radiologist's impression: ITS Impressions Head CT 07/07/25 14:00 IMPRESSION: 1. No acute intracranial findings. Ribs w/Chest X-Ray 07/07/25 14:03 Impression: No acute fracture or malalignment. Discharge Plan Discharge Clinical Impression: Back contusion, Back strain Patient Disposition: Home Condition: Stable Instructions: Acute Low Back Pain (ED) Additional Instructions: Please return to the emergency department if you develop severe pain that is not controlled by pain medications or if you are unable to walk because of pain or weakness. Return to the emergency department immediately if you develop fevers, loss of bowel or bladder control (dribbling of urine or having accidents you wouldn't normally have), inability to urinate, numbness of your genital or anal area, or weakness/numbness of your legs or arms as these could all be signs of a serious medical emergency. Patient Language: Faroese Prescriptions: New naproxen 375 mg tablet 375 mg PO BID Qty: 14 0RF tizanidine 2 mg capsule 2 mg PO Q8H PRN (Reason: muscle spasticity) Qty: 14 0RF No Action rosuvastatin 10 mg tablet 10 mg PO DAILY metoprolol succinate 25 mg tablet extended release 24 hr 25 mg PO DAILY trazodone 100 mg tablet See Rx Instructions .ROUTE .COMPLEX Qty: 90 3RF Dose Instruction: 100 MG ORALLY EVERY DAY AT BEDTIME NEEDED FOR SLEEP Rx Instructions: 100 MG ORALLY EVERY DAY AT BEDTIME NEEDED FOR SLEEP Follow-up/Referrals: Marilu Vasquez APRN [Primary Care Provider, Family Practice] - 1 Week
--- OUTSIDE RECORDS SUMMARY | 2025-07-07 13:49 | XMS_ITS | Clinical Summary ---
Author Organization [facility] [address] Address [address] [place] [address] Care Team Providers Care Collections Director Name Role Phone Isiah Weber MD Primary Care Provider [phone] Allergies No known active allergies Medications traZODone (DESYREL) 100 mg tablet 100 MG ORALLY EVERY DAY AT BEDTIME NEEDED FOR SLEEP 10/30/2023 Active rosuvastatin (CRESTOR) 10 mg tablet TAKE 1 TABLET BY MOUTH EVERY DAY 30 tablet 11 01/20/2025 Active metoprolol XL (TOPROL-XL) 25 mg extended release tablet Take 1 tablet (25 mg total) by mouth daily 90 tablet 3 04/14/2025 Active Active Problems Problem Noted Date Diagnosed Date Chronic insomnia 04/09/2018 GANESH (obstructive sleep apnea) 04/09/2018 Resolved Problems Problem Noted Date Diagnosed Date Resolved Date Snoring 04/09/2018 07/02/2018 Family History Medical History Relation Name Comments No Known Problems Father Heart attack Maternal Grandmother Heart attack Mother Hypertension Mother Heart disease Paternal Grandfather Relation Name Status Comments Father Maternal Grandmother Mother Paternal Grandfather Social History Tobacco Use Types Packs/Day Years Used Date Smoking Tobacco: Never Passive Smoke Exposure: Past Smokeless Tobacco: Current Chew Tobacco Cessation:Ready to Q uit: Not Asked; Counseling Given: Not Answered Alcohol Use Standard Drinks/Week Comments No 0 (1 standard drink = 0.6 oz pur e alcohol) Sex and Gender Information Value Date Recorded Sex Assigned at Not on file Legal 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 Gender Identity Male 01/12/2024 8:36 AM CDT Sexual Orientation Not on file 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 Not on file Not on file Obstetrics History Last Filed Vital Signs Vital Sign Reading Time Taken Comments Blood Pressure 131/78 11/06/2024 4:06 PM SCRUBBER MACHINE TENDER Pulse 63 11/06/2024 4:06 PM SCRUBBER MACHINE TENDER Temperature 36.7 C (98.1 F) 01/01/2024 10:16 AM CDT Respiratory Rate 16 04/09/2018 11:08 AM CDT Oxygen Saturation 98% 11/06/2024 4:06 PM SCRUBBER MACHINE TENDER Inhaled Oxygen Concentration - - Weight 92.7 kg (204 lb 6.4 oz) 11/06/2024 4:06 P M SCRUBBER MACHINE TENDER Height 185.4 cm (6' 1) 11/06/2024 4:06 PM SCRUBBER MACHINE TENDER Body Mass Index 26.97 11/06/2024 4:06 PM SCRUBBER MACHINE TENDER Plan of Treatment Health Maintenance Due Date Last Done Comments Colon Cancer Screening-Colonoscopy 1960 Depression Screening 1962 Hepatitis C Screening 1962 Prostate Cancer Screening-PSA 1962 Hepatitis B Screening 01/08/1980 Regular Well Visit/Exam 18-64 01/08/1980 Zoster Vaccine (1 of 2) 01/08/2012 Influenza Vaccine (#1) 2025 2, 07/04/2020 DTaP/Tdap/Td Vaccine (2 - Td or Tdap) 08/01/2032 08/01/2022 Pneumococcal vaccine <65 Aged Out No longer eligible based on patient's age to complete this topic Insurance Hol[employer]a OOS Holaira OOS Care Teams Collections Director Relationship Specialty Start Date End Date Isiah Weber MD PCP - General Family Practice 01/01/24
--- OUTSIDE RECORDS SUMMARY | 2025-07-07 13:49 | XMS_ITS | Encounter Summary ---
Author Organization [facility] Address [address] [place] [address] Phone Care Team Providers Care Medical Device Assembler Name Role Phone Richard Ely MD Primary Care Provider [phone] Isiah Weber MD Primary Care Provider [phone] Encounter Details Date Type Department Care Team (Latest Contact Info) Description 10/28/2023 Orders Only [facility] Scanning, Provider Social History Tobacco Use Types Packs/Day Years Used Date Smoking Tobacco: Never Smokeless Tobacco: Current Chew Alcohol Use Standard Drinks/Week Comments No 0 (1 standard drink = 0.6 oz pur e alcohol) Sex and Gender Information Value Date Recorded Sex Assigned at Not on file Legal Sex Male 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 documented in this encounter Plan of Treatment Not on file documented as of this encounter Procedures Procedure Name Priority Date/Time Associated Diagnosis Comments SCAN - LABS 10/28/2023 documented in this encounter Results * SCAN - LABS (10/28/2023) us Provider Scanning Final Result documented in this encounter Visit Diagnoses Not on filedocumented in this encounter Care Teams Medical Device Assembler Relationship Specialty Start Date End Date Richard Ely MD [address] [place] [address] PCP - General Family Medicine 03/27/18 12/31/23 Isiah Weber MD [address] [place] [address] PCP - General Family Practice 01/01/24 documented as of this encounter
[2025-07-07 14:16] LABS: Add Urine Microscopic? NO; Appearance Urine Clear (Clear); Glucose Urine UA Negative (Negative); Leukocyte Esterase Ur Negative LEU/UL (Negative); Nitrate Urine Negative (Negative); Specific Grav Ur 1.019 (1.001-1.035)
--- OUTSIDE RECORDS SUMMARY | 2025-07-07 14:42 | XMS_ITS | Clinical Summary ---
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 on file Not on file Obstetrics History Last Filed Vital Signs Vital Sign Reading Time Taken Comments Blood Pressure 131/78 11/06/2024 4:06 PM PIPELINE DISPATCH OPERATOR Pulse 63 11/06/2024 4:06 PM PIPELINE DISPATCH OPERATOR Temperature 36.7 C (98.1 F) 01/01/2024 10:16 AM CDT Respiratory Rate 16 04/09/2018 11:08 AM CDT Oxygen Saturation 98% 11/06/2024 4:06 PM PIPELINE DISPATCH OPERATOR Inhaled Oxygen Concentration - - Weight 92.7 kg (204 lb 6.4 oz) 11/06/2024 4:06 P M PIPELINE DISPATCH OPERATOR Height 185.4 cm (6' 1) 11/06/2024 4:06 PM PIPELINE DISPATCH OPERATOR Body Mass Index 26.97 11/06/2024 4:06 PM PIPELINE DISPATCH OPERATOR Plan of Treatment Health Maintenance Due Date [...] patient's age to complete this topic Insurance [employer] OOS [employer] OOS Care Teams Featheredge Machine Operator Relationship Specialty Start Date End Date Isiah Weber MD PCP - General Family Practice 01/01/24
--- OUTSIDE RECORDS SUMMARY | 2025-07-07 14:42 | XMS_ITS | Encounter Summary ---
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
[2025-07-07 15:13] VITALS: BP 110/78; PULSE 68; RESP 16; O2SAT 100
== END 2025-07-07 15:14 | disposition home or self-care (01) ==
PROVIDERS: Emergency Provider Emergency Medicine; PCP Nurse Practitioner Adult Health
DX: S39.012A Strain of muscle, fascia and tendon of lower back, initial encounter (principal); S30.0XXA Contusion of lower back and pelvis, initial encounter; G47.33 Obstructive sleep apnea (adult) (pediatric); F17.220 Nicotine dependence, chewing tobacco, uncomplicated; Z87.442 Personal history of urinary calculi; W10.8XXA Fall (on) (from) other stairs and steps, initial encounter
CPT/HCPCS: 70450; 71046; 71100; 81003; 99284

== ENCOUNTER 2025-08-19 08:05 | Outpatient (CLI) | payer OTHER, SELFPAY ==
[2025-08-19 19:18] LABS: Alanine Aminotransferase 47 U/L (6-50); Albumin Level 4.7 g/dL (3.5-5.1); Alkaline Phosphatase 74 U/L (38-126); Anion Gap 6 mmol/L (4-12); Aspartate Amino Transferase 69 U/L (17-59); Bilirubin,Total 0.9 mg/dL (0.2-1.3); Blood Urea Nitrogen 21 mg/dL (9-20); Calcium 10.3 mg/dL (8.4-10.2); Carbon Dioxide 27 mmol/L (22-30); Chloride 104 mmol/L (98-107); Cholesterol 154 mg/dL (0-200); Estimated Glomerular Filt Rate > 60; Glucose 84 mg/dL (65-110); HDL Direct 52 mg/dL; Potassium 4.8 mmol/L (3.4-5.0); Sodium 137 mmol/L (137-145); Total Protein 7.7 g/dL (6.3-8.2); Triglycerides 104 mg/dL (<150)
[2025-08-19 19:29] LABS: Hematocrit 48.3 % (42.0-52.0); Hemoglobin 15.9 g/dL (14.0-18.0); Immature Granulocyte Percent A 0.3 % (0-0.5); Lymphocytes Absolute Auto 1.63 K/mm3 (0.9-3.2); Mean Corpuscular HGB Conc 32.9 g/dl (32-36); Mean Corpuscular Hemoglobin 30.2 pg (26-34); Mean Corpuscular Volume 91.7 fl (80-100); Nucleated Red Blood Cells Absolute Auto 0.000 K/mm3 (0.0-0.012); Nucleated Red Blood Cells Perc 0.0 % (0.0-0.2); Platelet Count Result 230 k/mm3 (150-375); Red Blood Count 5.27 M/mm3 (4.6-6.20); White Blood Count 6.0 K/mm3 (4.5-10.0)
[2025-08-19 19:49] LABS: Prostate Specific Antigen 1.4 ng/mL (< OR = 4.0)
== END 2025-08-19 08:06 | disposition home or self-care (01) ==
PROVIDERS: PCP Nurse Practitioner Adult Health; Visit Provider Nurse Practitioner Adult Health
DX: E78.5 Hyperlipidemia, unspecified (principal); Z12.5 Encounter for screening for malignant neoplasm of prostate
CPT/HCPCS: 36415; 80053; 80061; 84153; 85025; G0103